=== PATIENT | female | born 1945 | race Native Hawaiian/Other Pacific Islander ===

== ENCOUNTER 2022-01-18 11:47 | Emergency (ER) | payer OTHER ==
[~2022-01-18] VITALS: Ht 157.5 cm; Wt 81.6 kg
[2022-01-18 11:51] VITALS: BP 141/67; TEMP 99.2
== END 2022-01-18 14:16 | disposition home or self-care (01) ==
LOC: ED 11:47
DX: S20.212A Contusion of left front wall of thorax, initial encounter (principal); W01.0XXA Fall on same level from slipping, tripping and stumbling without subsequent striking against object, initial encounter; Y92.098 Other place in other non-institutional residence as the place of occurrence of the external cause
CPT/HCPCS: 96372; 99283; J1940

== ENCOUNTER 2022-04-07 09:51 | Outpatient (CLI) | payer OTHER | END 2022-04-07 22:26 | disposition home or self-care (01) | LOC: LABW 09:51 | PROVIDERS: ATTEND Nurse Practitioner Primary Care | DX: R60.0 Localized edema (principal); I10 Essential (primary) hypertension ==

== ENCOUNTER 2022-08-01 11:00 | Outpatient (CLI) | payer OTHER | END 2022-08-01 18:58 | disposition home or self-care (01) | LOC: RAD 11:00 | PROVIDERS: ATTEND Nurse Practitioner Family | DX: J45.30 Mild persistent asthma, uncomplicated (principal) ==